=== PATIENT | female | born 1990 | race Caucasian/White ===

== ENCOUNTER 2018-01-12 17:31 | Emergency (ER) | payer OTHER ==
[2018-01-12 21:47] LABS: URINE PH (Dip) POC 7.5 (5.0-8.5)
[2018-01-12 21:47] LABS: URINE BLOOD (Dip) POC Trace-intact (NEGATIVE); URINE GLUCOSE (Dip) POC Negative (NEGATIVE); URINE KETONES (Dip) POC Negative (NEGATIVE); URINE LEUKOCYTE EST (Dip) POC 1+ (NEGATIVE); URINE NITRITE (Dip) POC Negative (NEGATIVE); URINE TOTAL PROTEIN POC 1+ (NEGATIVE)
[2018-01-12] MEDS: HYDROCODONE/APAP (5/325) TAB PO (21:51)
[2018-01-12] MEDS: ONDANSETRON (ODT) 4 MG TAB ODT (21:51)
== END 2018-01-12 22:39 | disposition home or self-care (01) ==
LOC: FTE 22:39
DX: N30.90 Cystitis, unspecified without hematuria (principal); R10.2 Pelvic and perineal pain
CPT/HCPCS: 81003; 81025; 99284